=== PATIENT | male | born 1965 | race Two or more races ===

== ENCOUNTER 2019-08-13 22:30 | Emergency (ER) | payer SELFPAY ==
[~2019-08-13] VITALS: Ht 175.3 cm; Wt 84.7 kg
[2019-08-13 22:32] VITALS: BP 150/97
--- NOTE | 2019-08-13 22:55 | NUR ---
PT BACK TO ROOM. ERP IN ROOM TO DISCUSS POC. PT BP ASSESSED, ASYMPTOMATIC. PT TO BE D/C. PT TO SEE PCP TOMORROW. PT HAS NO QUESTIONS AT THIS TIME.
== END 2019-08-13 23:05 | disposition home or self-care (01) ==
LOC: ED 22:40
DX: I10 Essential (primary) hypertension (principal)
CPT/HCPCS: 99281